=== PATIENT | male | born 1940 | race Caucasian/White ===

== ENCOUNTER 2020-03-09 21:04 | Observation (INO) | payer MEDICARE, OTHER ==
[~2020-03-09] VITALS: Ht 182.9 cm; Wt 84.3 kg
[2020-03-09 21:17] LABS: BASOPHILS % (AUTO) 0.5 % (0.0-5.0); EOSINOPHILS % (AUTO) 4.3 % (0.0-8.0); HEMATOCRIT 41.3 % (42-54); LYMPHOCYTES % (AUTO) 25.1 % (21.0-51.0); MEAN CORPUSCULAR HGB CONC 33.9 g/dL (32.0-36.0); MEAN CORPUSCULAR VOLUME 91.4 fL (79-99); MONOCYTES % (AUTO) 11.2 % (3.0-13.0); NEUTROPHILS % (AUTO) 58.4 % (40.0-77.0); PLATELET COUNT (AUTO) 194 K/uL (130-400); RED BLOOD CELL COUNT(AUTO) 4.52 MIL/uL (4.50-6.20); RED CELL DISTRIBUTION WIDTH 12.1 % (11.0-15.5); WHITE BLOOD COUNT (AUTO) 10.3 K/uL (4.8-10.8)
[2020-03-09 21:28] LABS: CREATININE 1.5 mg/dL (0.5-1.5); POTASSIUM 4.3 mmol/L (3.5-5.1)
[2020-03-09 21:31] LABS: INR 0.94 (0.85-1.15); PARTIAL THROMBOPLASTIN TIME 25.8 SEC (26.3-35.5); PROTHROMBIN TIME 10.2 SEC (9.6-11.6)
[2020-03-09 21:33] LABS: ALBUMIN 3.4 g/dL (3.5-5.0); BILIRUBIN,TOTAL 0.3 mg/dL (0.2-1.0); TOTAL PROTEIN, SERUM 6.7 g/dL (6.0-8.3)
[2020-03-10] VITALS (7 sets, daily range): BP systolic 112–131; BP diastolic 55–80
[2020-03-10] MEDS ORDERED: MORPHINE SULFATE 2 MG/ML 1ML SYG IVP PRN (00:45)
[2020-03-10] MEDS ORDERED: ACETAMINOPHEN 325 MG TAB PO PRN ×2 (00:45)
[2020-03-10] MEDS ORDERED: ONDANSETRON HCL 4 MG/2 ML VIAL IV PRN (00:45)
[2020-03-10] MEDS ORDERED: ASPI-1012 PO (02:45)
[2020-03-10] MEDS ORDERED: BENA20TA10 PO (02:45)
[2020-03-10] MEDS ORDERED: LEVO25TA4 PO (02:45)
--- NOTE | 2020-03-10 02:49 | NUR ---
BELONGING AT BEDSIDE, HEARING AID TO BOTH EARS, APPLE 4 WATCH, AND CELLULAR PHONE Addendum: 03/10/20 at 0251 by SYLVAIN TEIXEIRA RN RN Amended: Links added.
[2020-03-10] MEDS: SODIUM CHLORIDE 0.9% 1000ML 1,000 ML IV SCH ×2 (04:12→20:38)
[2020-03-10] MEDS: NITROGLYCERIN 1GM/1 INCH PACKET TD SCH ×3 (04:13→20:31)
[2020-03-10 06:18] LABS: BASOPHILS % (AUTO) 0.6 % (0.0-5.0); EOSINOPHILS % (AUTO) 4.7 % (0.0-8.0); HEMATOCRIT 39.6 % (42-54); LYMPHOCYTES % (AUTO) 25.3 % (21.0-51.0); MEAN CORPUSCULAR HEMOGLOBIN 30.9 pg (27.0-33.0); MEAN CORPUSCULAR HGB CONC 33.6 g/dL (32.0-36.0); MEAN CORPUSCULAR VOLUME 92.1 fL (79-99); MONOCYTES % (AUTO) 10.9 % (3.0-13.0); NEUTROPHILS % (AUTO) 57.9 % (40.0-77.0); PLATELET COUNT (AUTO) 192 K/uL (130-400); RED CELL DISTRIBUTION WIDTH 12.3 % (11.0-15.5); WHITE BLOOD COUNT (AUTO) 9.9 K/uL (4.8-10.8)
[2020-03-10 06:47] LABS: ALANINE AMINOTRANSFERASE 34 U/L (12-78); ALBUMIN 3.2 g/dL (3.5-5.0); ASPARTATE AMINOTRANSFERASE 18 U/L (10-37); BILIRUBIN,TOTAL 0.6 mg/dL (0.2-1.0); CARBON DIOXIDE 28 mmol/L (21-32); CHLORIDE 104 mmol/L (101-111); CHOLESTEROL 124 mg/dL (<200); CREATINE KINASE, TOTAL 75 U/L (21-232); CREATININE 1.2 mg/dL (0.5-1.5); GLOMERULAR FILTR. RATE CALC 62 mL/min (>60); GLUCOSE,RANDOM 114 mg/dL (70-105); HDL CHOLESTEROL 44 mg/dL (29-71); LDL DIRECT 64 mg/dL (0-99); MYOGLOBIN 74 ng/mL (10-92); POTASSIUM 4.3 mmol/L (3.5-5.1); SODIUM SERUM 138 mmol/L (136-145); TOTAL PROTEIN, SERUM 6.2 g/dL (6.0-8.3); TRIGLYCERIDES 83 mg/dL (30-200); TROPONIN I < 0.04 ng/mL (0.00-0.06); UREA NITROGEN, BLOOD 27 mg/dL (7-18)
[2020-03-10 06:52] LABS: HEMOGLOBIN A1C 6.9 % (4.0-6.0)
[2020-03-10] MEDS: FAMOTIDINE 20MG TAB 20 MG TAB PO SCH ×2 (09:19→20:30)
[2020-03-10] MEDS: ASPIRIN 81MG TAB.CHEW PO SCH (09:19)
[2020-03-10] MEDS: ENOXAPARIN SODIUM 30 MG/0.3 ML SQ SCH (09:23)
[2020-03-10] MEDS ORDERED: PHARMACY COMMUNICATION MISC SCH (11:30)
--- NOTE | 2020-03-10 20:31 | NUR ---
MEDS SHIFT ASSESSMENT DONE, PLEASE REFER TO CHART. DUE MEDS ADMINISTERED, TOLERATED WELL. INSTRUCTED PT TO BE NPO POST MN FOR LEXISCAN IN AM. PT VERBALIZES UNDERSTANDING. KEPT CALL LIGHT WITHIN REACH. WILL MONITOR PT. ENCOURAGED TO REST AND SLEEP. Addendum: 03/11/20 at 0005 by ALBERTO MONTAGUE RN RN Amended: Links added.
[2020-03-11] VITALS: BP 118/63
--- NOTE | 2020-03-11 02:00 | NUR ---
ROUNDS PT RESTING WELL, FAIRLY ASLEEP WITH RESPIRATIONS EVEN AND UNLABORED. NO NOTED DISTRESS. KEPT UNDISTURBED FOR NOW. CALL LIGHT WITHIN REACH. WILL MONITOR PT.
[2020-03-11] MEDS: NITROGLYCERIN 1GM/1 INCH PACKET TD SCH ×2 (03:36→12:22)
[2020-03-11 04:02] VITALS: BP 123/75
--- NOTE | 2020-03-11 06:10 | NUR ---
ROUNDS PT JUST HAD HIS SHOWER, TOLERATED ACTIVITY WELL KEPT NPO FOR PENDING LEXISCAN TODAY. FOR MORE CARE.
[2020-03-11] MEDS ORDERED: LEVOTHYROXINE 125 MCG TABLET PO SCH (07:30)
[2020-03-11 08:12] VITALS: BP 137/78
[2020-03-11] MEDS ORDERED: BENAZEPRIL HCL 10 MG TABLET PO SCH (09:00)
[2020-03-11] MEDS: ENOXAPARIN SODIUM 30 MG/0.3 ML SQ SCH (09:00)
[2020-03-11] MEDS ORDERED: REGADENOSON 0.4 MG/5 ML PF SYG IVP SCH (10:15)
[2020-03-11 12:07] VITALS: BP 135/76
[2020-03-11] MEDS: FAMOTIDINE 20MG TAB 20 MG TAB PO SCH (12:21)
[2020-03-11] MEDS: ASPIRIN 81MG TAB.CHEW PO SCH (12:22)
[2020-03-11 17:01] VITALS: BP 122/70
== END 2020-03-11 18:25 | disposition home or self-care (01) ==
LOC: EDH 21:04 → INTOOBSV 03-10 00:36 → EDHIP 03-10 00:36 → 3CH 03-10 01:29
PROVIDERS: ADMIT Internal Medicine; ATTEND Internal Medicine
DX: I49.1 Atrial premature depolarization (principal); R00.2 Palpitations; I10 Essential (primary) hypertension; E78.00 Pure hypercholesterolemia, unspecified; I25.10 Atherosclerotic heart disease of native coronary artery without angina pectoris; E03.9 Hypothyroidism, unspecified; E11.9 Type 2 diabetes mellitus without complications; E78.5 Hyperlipidemia, unspecified; Z95.5 Presence of coronary angioplasty implant and graft; Z85.46 Personal history of malignant neoplasm of prostate
CPT/HCPCS: 36415 ×2; 71045; 78452; 80053 ×2; 80061; 82550 ×2; 83036; 83735; 83874; 84443 ×2; 84484 ×3; 85025 ×2; 85610; 85730; 93005 ×3; 93017; 93306; 93356; 96372; 99285; A9500 ×2; G0378 ×25; J1650; J2785; J7030; 96374